=== PATIENT | female | born 1960 ===

== ENCOUNTER 2017-02-04 14:19 | Emergency (ER) | payer OTHER ==
[2017-02-04 15:21] VITALS: BP 163/81; PULSE 91; RESP 16; TEMP 97.6; O2SAT 99
[2017-02-04] MEDS ORDERED: Sodium Chloride 0.9% 1,000 ML IV STA (15:47)
--- NOTE | 2017-02-04 15:48 | ED PDOC ---
HPI: Female Pain Time Seen by Provider: 02/04/17 15:42 Chief Complaint (Nursing): Female Genitourinary Chief Complaint (Provider): Dysuria History Per: Patient History/Exam Limitations: no limitations Onset/Duration Of Symptoms: Days (x5) Current Symptoms Are (Timing): Still Present Quality Of Discomfort: Pressure Associated Symptoms: Back Pain, Urinary Symptoms Additional Complaint(s): 56 year old female presents to the ER complaining of dysuria described as pressure, associated with hematuria, onset 5 days ago. She states that her symptoms began with back pain. Patient also notes that she was admitted 1 year ago for kidney stones and had stent placement. Currently she denies any fever, chills, or abdominal pain. PMD: None provided Past Medical History Reviewed: Historical Data, Nursing Documentation, Vital Signs Vital Signs: Last Vital Signs Temp 97.6 F 02/04/17 15:17 Pulse 91 H 02/04/17 15:17 Resp 16 02/04/17 15:17 BP 163/81 H 02/04/17 15:17 Pulse Ox 99 02/04/17 15:17 - Medical History PMH: Kidney Stones - Surgical History Other surgeries: Kidney stents - Family History Family History: States: Unknown Family Hx - Home Medications Home Medications: Ambulatory Orders Medication Instructions Recorded Cephalexin [Keflex] 500 mg PO TID #15 capsule 02/04/17 Phenazopyridine HCl [Pyridium] 100 mg PO BID PRN #6 tablet 02/04/17 - Allergies Allergies/Adverse Reactions: Allergies Allergy/AdvReac Type Severity Reaction Status Date / Time No Known Allergies Allergy Verified 02/04/17 15:40 Review of Systems ROS Statement: Except As Marked, All Systems Reviewed And Found Negative Constitutional: Negative for: Fever, Chills Gastrointestinal: Negative for: Nausea, Vomiting, Abdominal Pain Genitourinary Female: Positive for: Dysuria, Hematuria Musculoskeletal: Positive for: Back Pain Physical Exam - Reviewed Nursing Documentation Reviewed: Yes Vital Signs Reviewed: Yes - Physical Exam Appears: Positive for: Non-toxic, No Acute Distress Head Exam: Positive for: ATRAUMATIC, NORMAL INSPECTION, NORMOCEPHALIC Skin: Positive for: Normal Color, Warm, Dry Eye Exam: Positive for: EOMI, Normal appearance, PERRL Neck: Positive for: Normal, Painless ROM, Supple Gastrointestinal/Abdominal: Positive for: Normal Exam, Soft. Negative for: Tenderness, Distended, Other (flank tenderness) Back: Positive for: Normal Inspection. Negative for: L CVA Tenderness, R CVA Tenderness, Vertebral Tenderness Extremity: Positive for: Normal ROM. Negative for: Deformity Neurologic/Psych: Positive for: Alert, Oriented - Laboratory Results Result Diagrams: 02/04/17 16:34 02/04/17 16:34 Urine dip results: Positive for: Leukocyte Esterase (small), Blood (trace), Ketones (trace) - ECG O2 Sat by Pulse Oximetry: 99 (RA) Pulse Ox Interpretation: Normal Medical Decision Making Medical Decision Making: Time: 15:44 Initial Impression: 56 y/o female with dysuria and back pain Initial Plan: * CMP * CBC w/ differentials * Urine culture * Urinalysis * ED urine dipstick * Sodium chloride IV 1000 ml at 500 mls/hr * Pending CT Abd & Pelvis w/o contrast Urine dip shows small leuks, trace blood, specific gravity >1.025, and trace ketones. Time: 16:53 CT Abd/Pelvis: FINDINGS: LOWER THORAX: There is a 6 mm noncalcified subpleural nodule in the medial segment of the right middle lobe (series 2, image 8). The lung bases are clear. LIVER: Normal in size. No gross lesion or ductal dilatation. GALLBLADDER AND BILE DUCTS: No calcified gallstones. PANCREAS: Normal in size. No gross lesion or ductal dilatation. SPLEEN: Normal in size. ADRENALS: No discrete nodule. KIDNEYS AND URETERS: Both kidneys are normal in size without hydronephrosis. There is a 3 mm nonobstructing stone in the lower pole of the right kidney. The ureters are not dilated. VASCULATURE: No aortic aneurysm. There are early atherosclerotic aortic calcifications. BOWEL: The small bowel loops are normal in caliber. There is moderate amount of stool in the colon. There is fecal stasis in the rectum. No bowel dilatation or obstruction. APPENDIX: Normal appendix. PERITONEUM: No free fluid. No free air. LYMPH NODES: Unremarkable. No enlarged lymph nodes. BLADDER: Unremarkable. REPRODUCTIVE: The uterus is anteverted, enlarged and lobular. BONES: No acute fracture. Within normal limits for the patient's age. OTHER FINDINGS: None. IMPRESSION: 1. 3 mm nonobstructing stone in the lower pole of the right kidney. No hydronephrosis or obstructive uropathy. 2. No CT evidence for acute appendicitis. 3. Constipation. No evidence of bowel obstruction. 4. Enlarged lobular uterus. A dedicated pelvic ultrasound on a nonemergent basis is recommended to evaluate for fibroids. 5. 6 mm noncalcified subpleural nodule in the medial segment of the right middle lobe. A dedicated CT scan of the thorax without intravenous contrast on a non emergent basis is recommended for complete evaluation of the lungs. Labs reviewed, urine indicative of UTI. Patient is medically stable and will be discharged with rx for KEFLEX/PYRIDIUM Pt will follow up with PMD. Scribe Attestation: Documented by Mimi Villalobos, acting as a scribe for Giselle Marcano PA-C Provider Scribe Attestation: All medical record entries made by the Scribe were at my direction and personally dictated by me. I have reviewed the chart and agree that the record accurately reflects my personal performance of the history, physical exam, medical decision making, and the department course for this patient. I have also personally directed, reviewed, and agree with the discharge instructions and disposition. Disposition - Clinical Impression Clinical Impression: Urinary tract infection - Patient ED Disposition Is Patient to be Admitted: No Counseled Patient/Family Regarding: Studies Performed, Diagnosis, Need For Followup - Disposition [facility] Disposition: Routine/Home Disposition Time: 17:16 Condition: FAIR Prescriptions: Cephalexin [Keflex] 500 mg PO TID #15 capsule Phenazopyridine HCl [Pyridium] 100 mg PO BID PRN #6 tablet PRN Reason: Urinary Discomt Instructions: Urinary Tract Infection in Women (GEN) Forms: [employer] (Urdu) Print Language: FRENCH - POA Present On Arrival: None
[2017-02-04 16:38] LABS: BASO # 0.1 K/uL (0.0-0.2); BASO % 0.9 % (0.0-2.0); EOS # 0.1 K/uL (0.0-0.7); EOS % 1.1 % (0.0-4.0); LYMPH # 3.8 K/uL (1.0-4.3); LYMPH % 39.5 % (20.0-40.0); MEAN CELL VOLUME 89.1 fl (81.0-99.0); MEAN CORPUSCULAR HEMOGLOBIN 29.2 pg (27.0-31.0); MEAN CORPUSCULAR HGB CONC 32.8 g/dL (33.0-37.0); MEAN PLATELET VOLUME 6.7 fl (7.2-11.7); MONO # 0.5 K/uL (0.0-0.8); MONO % 4.9 % (0.0-10.0); NEUT # 5.2 K/uL (1.8-7.0); NEUT % 53.6 % (50.0-75.0); WHITE BLOOD COUNT 9.7 K/uL (4.8-10.8)
--- NOTE | 2017-02-04 16:54 | CT ---
PROCEDURE: CT Abdomen and Pelvis without intravenous contrast HISTORY: r/o renal colic COMPARISON: None. TECHNIQUE: CT scan of the abdomen and pelvis was performed without intravenous contrast. Oral contrast was not administered. Coronal and sagittal reformatted images were obtained. Radiation dose: Total exam DLP = 1047.62 mGy-cm. This CT exam was performed using one or more of the following dose reduction techniques: Automated exposure control, adjustment of the mA and/or kV according to patient size, and/or use of iterative reconstruction technique. FINDINGS: LOWER THORAX: There is a 6 mm noncalcified subpleural nodule in the medial segment of the right middle lobe (series 2, image 8). The lung bases are clear. LIVER: Normal in size. No gross lesion or ductal dilatation. GALLBLADDER AND BILE DUCTS: No calcified gallstones. PANCREAS: Normal in size. No gross lesion or ductal dilatation. SPLEEN: Normal in size. ADRENALS: No discrete nodule. KIDNEYS AND URETERS: Both kidneys are normal in size without hydronephrosis. There is a 3 mm nonobstructing stone in the lower pole of the right kidney. The ureters are not dilated. VASCULATURE: No aortic aneurysm. There are early atherosclerotic aortic calcifications. BOWEL: The small bowel loops are normal in caliber. There is moderate amount of stool in the colon. There is fecal stasis in the rectum. No bowel dilatation or obstruction. APPENDIX: Normal appendix. PERITONEUM: No free fluid. No free air. LYMPH NODES: Unremarkable. No enlarged lymph nodes. BLADDER: Unremarkable. REPRODUCTIVE: The uterus is anteverted, enlarged and lobular. BONES: No acute fracture. Within normal limits for the patient's age. OTHER FINDINGS: None. IMPRESSION: 1. 3 mm nonobstructing stone in the lower pole of the right kidney. No hydronephrosis or obstructive uropathy. 2. No CT evidence for acute appendicitis. 3. Constipation. No evidence of bowel obstruction. 4. Enlarged lobular uterus. A dedicated pelvic ultrasound on a nonemergent basis is recommended to evaluate for fibroids. 5. 6 mm noncalcified subpleural nodule in the medial segment of the right middle lobe. A dedicated CT scan of the thorax without intravenous contrast on a non emergent basis is recommended for complete evaluation of the lungs.
[2017-02-04 16:58] LABS: POTASSIUM 4.7 MMOL/L (3.6-5.0)
[2017-02-04 17:09] LABS: ALKALINE PHOSPHATASE 113 U/L (38-126); ALT/SGPT 34 U/L (9-52); AST/SGOT 19 U/L (14-36); BILIRUBIN,TOTAL 0.5 mg/dl (0.2-1.3); BLOOD UREA NITROGEN 10 mg/dl (7-17); CALCIUM 9.4 mg/dL (8.4-10.2); CARBON DIOXIDE 26 mmol/L (22-30); CHLORIDE 101 mmol/L (98-107); GFR AFRICAN-AMERICAN > 60; GLUCOSE,RANDOM 190 mg/dL (65-105); SODIUM 137 mmol/l (132-148); TOTAL PROTEIN 8.4 G/DL (6.3-8.2)
[2017-02-04 17:23] LABS: RBC URINE 4 /hpf (0-3); URINE BACTERIA OCC (<OCC); URINE BILIRUBIN NEGATIVE (NEGATIVE); URINE BLOOD NEGATIVE (NEGATIVE); URINE COLOR YELLOW (YELLOW); URINE GLUCOSE (UA) 50 mg/dL (Normal); URINE KETONE TRACE mg/dL (NEGATIVE); URINE LEUKOCYTE ESTERASE LARGE Leu/uL (Negative); URINE PROTEIN 30 mg/dL (NEGATIVE); URINE UROBILINOGEN 0.2-1.0 mg/dL (0.2-1.0); WBC URINE 87 /hpf (0-5)
== END 2017-02-04 17:52 | disposition home or self-care (01) ==
LOC: H.ER 14:19
DX: N39.0 Urinary tract infection, site not specified (principal); N20.0 Calculus of kidney